=== PATIENT | female | born 1990 ===

== ENCOUNTER 2018-07-11 10:39 | Emergency (ER) | payer SELFPAY ==
[2018-07-11 10:40] VITALS: BMI 32.3
[2018-07-11 10:52] VITALS: RESP 18
[2018-07-11 11:18] LABS: HCG,QUALITATIVE URINE POSITIVE (NEGATIVE)
[2018-07-11 11:20] LABS: SQUAMOUS EPITHIAL 3 /hpf (0-5); URINE BILIRUBIN NEGATIVE (NEGATIVE); URINE BLOOD NEGATIVE (NEGATIVE); URINE CLARITY Hazy (Clear); URINE COLOR Yellow (YELLOW); URINE GLUCOSE (UA) NORMAL (Normal); URINE LEUKOCYTE ESTERASE NEG Leu/uL (Negative); URINE PROTEIN NEGATIVE (NEGATIVE); URINE UROBILINOGEN NORMAL mg/dL (0.2-1.0)
[2018-07-11] MEDS ORDERED: Sodium Chloride 0.9% 1,000 ML IV ONE (11:33)
--- NOTE | 2018-07-11 12:30 | US ---
Date of service: 07/11/2018 Indication: lower abdominal pain - LMP= 05/20/18 Comparison: None available Technique: Transabdominal pelvic ultrasound Findings: Uterus measures approximately 12.3 x 6.7 x 9.1 cm. Anteverted. Cervix length measures approximately 2.8 cm. There is a single intrauterine fetus present. 3 mm yolk sac. The gestational sac measures 3.9 cm and is compatible with a gestational age of 9 weeks 1 day. The crown-rump length measures 2.4 cm and is compatible with a gestational age of 9 weeks 1 day. There is heart motion which measured 154.4 BPM. The right ovary measures 3.5 x 1.4 x 3.3 cm. The left ovary measures 3.7 x 2.8 x 3.4 cm. Blood flow was demonstrated to both ovaries. Impression: Live single intrauterine with estimated gestational age 9 weeks 1 day. heart rate 154.4 bpm. Advise an anomaly screen at 16-18 weeks gestational age.
[2018-07-11 12:31] LABS: BASO # 0.1 K/uL (0.0-0.2); BASO % 0.5 % (0.0-2.0); EOS # 0.1 K/uL (0.0-0.7); EOS % 0.8 % (0.0-4.0); HEMOGLOBIN 13.6 g/dL (11.0-16.0); LYMPH # 2.1 K/uL (1.0-4.3); LYMPH % 16.8 % (20.0-40.0); MEAN CELL VOLUME 88.8 fL (81.0-99.0); MEAN CORPUSCULAR HEMOGLOBIN 30.7 pg (27.0-31.0); MEAN CORPUSCULAR HGB CONC 34.6 g/dL (33.0-37.0); MEAN PLATELET VOLUME 8.2 fL (7.2-11.7); MONO # 0.7 K/uL (0.0-0.8); MONO % 5.6 % (0.0-10.0); NEUT # 9.7 K/uL (1.8-7.0); NEUT % 76.3 % (50.0-75.0); NRBC % 0.1 % (0.0-2.0); RBC 4.42 Mil/uL (3.80-5.20); RED CELL DISTRIBUTION WIDTH 13.2 % (11.5-14.5); WHITE BLOOD COUNT 12.7 K/uL (4.8-10.8)
[2018-07-11 12:42] LABS: ALB/GLOB RATIO 1.3 (1.0-2.1); ALBUMIN 3.8 g/dL (3.5-5.0); ALT/SGPT 26 U/L (9-52); AST/SGOT 31 U/L (14-36); BLOOD UREA NITROGEN 11 mg/dL (7-17); CALCIUM 9.3 mg/dl (8.6-10.4); GFR NON-AFRICAN AMERICAN > 60; LIPASE 50 U/L (23-300)
[2018-07-11 13:05] VITALS: TEMP 98
[2018-07-11 13:11] VITALS: BP 112/76; PULSE 76; O2SAT 99
--- NOTE | 2018-07-11 16:29 | C.PDOC ---
History Of Present Illness 27 year old female presents to ED with complaint of lower abdominal pain over the past day and a half. Patient is 11 weeks . , P:3, A:1. Patient has yet to have an OB ultrasound. Patient denies nausea, vomiting, vaginal bl eeding, vaginal discharge, dysuria, and hematuria. Time Seen by Provider: 07/11/18 11:01 Chief Complaint (Nursing): Abdominal Pain History Per: Patient History/Exam Limitations: no limitations Onset/Duration Of Symptoms: Days (1.5) Current Symptoms Are (Timing): Still Present Location Of Pain/Discomfort: RLQ, LLQ Radiation Of Pain To:: None Quality Of Discomfort: "Pain" Associated Symptoms: denies: Nausea, Vomiting, Urinary Symptoms Exacerbating Factors: None Alleviating Factors: None Abnormal Vaginal Bleeding: No Past Medical History Reviewed: Historical Data, Nursing Documentation, Vital Signs Vital Signs: Last Vital Signs Temp 98 F 07/11/18 13:04 Pulse 76 07/11/18 13:07 Resp 18 07/11/18 13:07 BP 112/76 07/11/18 13:07 Pulse Ox 99 07/11/18 13:07 - Medical History PMH: No Chronic Diseases Surgical History: No Surg Hx - [facility] Procedures DELIVERY OF PRODUCTS OF CONCEPTION, EXTERNAL APPROACH (08/05/15) Family History: States: Unknown Family Hx - Social History Hx Alcohol Use: No Hx Substance Use: No - Immunization History Hx Tetanus Toxoid Vaccination: No Hx Influenza Vaccination: No Hx Pneumococcal Vaccination: No Review Of Systems Constitutional: Negative for: Fever, Chills, Weakness Gastrointestinal: Positive for: Abdominal Pain (lower abdomen). Negative for: Nausea, Vomiting Genitourinary: Negative for: Vaginal Discharge, Vaginal Bleeding Neurological: Negative for: Weakness, Numbness Physical Exam - Physical Exam Appears: Well, Non-toxic, No Acute Distress Skin: Normal Color, Warm, Dry Head: Atraumatic, Normacephalic Neck: Normal, Supple Chest: Symmetrical, No Deformity Cardiovascular: Rhythm Regular, No Murmur Respiratory: No Accessory Muscle Use, No Rales, No Rhonchi, No Wheezing Gastrointestinal/Abdominal: Soft, No Tenderness Extremity: Capillary Refill (<2 seconds) Neurological/Psych: Oriented x3, Normal Speech, Normal Cognition ED Course And Treatment - Laboratory Results Result Diagrams: 07/11/18 12:23 07/11/18 12:23 Lab Results: Total Bilirubin 0.3 mg/dL (0.2-1.3) 07/11/18 12:23 AST 31 U/L (14-36) 07/11/18 12:23 ALT 26 U/L (9-52) 07/11/18 12:23 Alkaline Phosphatase 66 U/L (38-126) 07/11/18 12:23 Total Protein 6.6 g/dL (6.3-8.3) 07/11/18 12:23 Albumin 3.8 g/dL (3.5-5.0) 07/11/18 12:23 Globulin 2.8 gm/dL (2.2-3.9) 07/11/18 12:23 Albumin/Globulin Ratio 1.3 (1.0-2.1) 07/11/18 12:23 Lipase 50 U/L (23-300) 07/11/18 12:23 Urine Color Yellow (YELLOW) 07/11/18 11:08 Urine Clarity Hazy (Clear) 07/11/18 11:08 Urine pH 6.0 (5.0-8.0) 07/11/18 11:08 Ur Specific [place] 1.026 (1.003-1.030) 07/11/18 11:08 Urine Protein Negative mg/dL (NEGATIVE) 07/11/18 11:08 Urine Glucose (UA) Normal mg/dL (Normal) 07/11/18 11:08 Urine Ketones Negative mg/dL (NEGATIVE) 07/11/18 11:08 Urine Blood Negative (NEGATIVE) 07/11/18 11:08 Urine Nitrate Negative (NEGATIVE) 07/11/18 11:08 Urine Bilirubin Negative (NEGATIVE) 07/11/18 11:08 Urine Urobilinogen Normal mg/dL (0.2-1.0) 07/11/18 11:08 Ur Leukocyte Esterase Neg Cindy/uL (Negative) 07/11/18 11:08 Urine WBC (Auto) 2 /hpf (0-5) 07/11/18 11:08 Urine RBC (Auto) 1 /hpf (0-3) 07/11/18 11:08 Ur Squamous Epith Cells 3 /hpf (0-5) 07/11/18 11:08 Urine HCG, Qual Positive (NEGATIVE) 07/11/18 11:08 Beta HCG, Quant 36753.00 mIU/ML 07/11/18 12:23 Urine HCG, Qual Positive (NEGATIVE) 07/11/18 11:08 O2 Sat by Pulse Oximetry: 99 (in RA) Medical Decision Making Medical Decision Making: Impression: 27 year old female presents to ED with complaint of lower abdominal pain over the past day and a half Plan: Labs ordered with B-HCG, CMP, CBC, urine culture, and UA Transvaginal US ordered Patient given IV fluids and Tylenol PO Disposition - Disposition Referrals: Eveline Perea, [Non-Staff] - Disposition: HOME/ ROUTINE Disposition Time: 12:45 Condition: GOOD Additional Instructions: LOU ARAUJO, thank you for letting us take care of you today. The emergency medical care you received today was directed at your acute symptoms. If you were prescribed any medication, please fill it and take as directed. It may take several days for your symptoms to resolve. Return to the Emergency Department if your symptoms worsen, do not improve, or if you have any other problems. Please contact your doctor or call one of the physicians/clinics you have been referred to that are listed on the Patient Visit Information form that is included in your discharge packet. Bring any paperwork you were given at discharge with you along with any medications you are taking to your follow up visit. Our treatment cannot replace ongoing medical care by a primary care provider outside of the emergency department. Thank you for allowing the [facility] team to be part of your care today. Follow up with your [facility] doctor in 5-7 days for re-evaluation and further management. Return to the emergency room if you have any concerns. LOU ARAUJO, juan c por dejarnos cuidar de usted hoy. La atencin mdica de emergencia que recibi hoy se dirigi a lain sntomas agudos. Si le recetaron algn medicamento, llnelo y tmelo segn las indicaciones. Los sntomas pueden tardar varios cummings en resolverse. Regrese al Departamento de Emergencias si lian sntomas empeoran, no mejoran o si tiene otros problemas. Comunquese con azul mdico o llame a blanche de los mdicos / clnicas a los que portillo sido referido que figuran en el formulario de Informacin de visita al paciente que se incluye en azul paquete de bart[place]. Lleve todos los documentos que recibi al momento del bartolome junto con los medicamentos que est tomando para azul visita de seguimiento. Nuestro tratamiento no puede reemplazar la atencin mdica continua por parte de un proveedor de atencin primaria fuera del departamento de emergencias. Juan C por permitir que el equipo de [facility] sea parte de azul atencin hoy. Rosette un seguimiento con azul mdico obstetra / gineclogo en 5-7 cummings para lindsey reevaluacin y manejo adicional. Regrese a la francisca de emergencias si tiene alguna inquietud. Prescriptions: Vit No.126/Iron/Folic [Classic Tablet] 1 each PO DAILY #30 tablet Instructions: - The Third Month Forms: [employer] [place] (Scottish) Print Language: TAJIK - Clinical Impression Clinical Impression: Abdominal pain during - Scribe Statement The provider has reviewed the documentation as recorded by the Scribe (Davina Gilmore) All medical record entries made by the Scribe were at my direction and personally dictated by me. I have reviewed the chart and agree that the record accurately reflects my personal performance of the history, physical exam, medical decision making, and the department course for this patient. I have also personally directed, reviewed, and agree with the discharge instructions and disposition.
== END 2018-07-11 13:12 | disposition home or self-care (01) ==
LOC: C.ER 10:39
DX: O26.891 Other specified pregnancy related conditions, first trimester (principal); R10.30 Lower abdominal pain, unspecified; Z3A.11 11 weeks gestation of pregnancy